=== PATIENT | male | born 1965 | race Two or more races ===

== ENCOUNTER 2018-09-01 12:05 | Emergency (ER) | payer BC ==
[~2018-09-01] VITALS: Ht 190.5 cm; Wt 81.6 kg
--- NOTE | 2018-09-01 12:31 | NUR ---
PT IIS IN ROOM #1A. DR JORGE EVALUATED THE PT.
[2018-09-01] MEDS ORDERED: TDAP DIPH,PERTUSS,TET VAC/PF 0.5 ML DISP.SYRIN IM ONE ×2 (13:00→13:02)
[2018-09-01] MEDS ORDERED: LIDOCAINE HCL 1% 20 ML VIAL IJ ONE (14:00)
[2018-09-01] MEDS ORDERED: NEOMY/BACITRA/POLYMYXIN B OINT UD PACKET TP ONE ×2 (14:27→14:30)
[2018-09-01 14:28] VITALS: BP 143/79
--- NOTE | 2018-09-01 14:28 | NUR ---
PT WAS D/C'd TO HOME. D/C INSTRUCTIONS GIVEN TO THE PT.
== END 2018-09-01 14:29 | disposition home or self-care (01) ==
LOC: ER 12:05
DX: S01.01XA Laceration without foreign body of scalp, initial encounter (principal); W20.8XXA Other cause of strike by thrown, projected or falling object, initial encounter; Y93.89 Activity, other specified; Y92.89 Other specified places as the place of occurrence of the external cause; Y99.8 Other external cause status
CPT/HCPCS: 12002; 70450; 72125; 90471; 90715; 99284; J3490; A4217; A4663